=== PATIENT | female | born 1960 | race Caucasian/White ===

== ENCOUNTER 2020-11-27 13:58 | Inpatient (IN) | payer BC ==
[~2020-11-27] VITALS: Ht 172.7 cm; Wt 93.5 kg
[~2020-11-27 13:58] MED LIST: Adipex-P37.5 MG PO; CEFP500 PO; DULO30 PO; DULOXETINE HCL60 M1 PO; LATANOPROST2.5 M1 BOTHEYES
[2020-11-27 15:00] LABS: International Normalized Ratio 0.96; Prothrombin Time Results 10.4 Sec (9.7-11.5)
--- NOTE | 2020-11-27 16:23 | NUR ---
Echocardiogram completed.
--- NOTE | 2020-11-27 18:50 | NUR ---
PATIENT ARRIVED TO UNIT, VSS, ALERT AND ORIENTED. TR BAND IN PLACE, NO SIGNS OF DISCHARGE/HEMATOMA AT R. RADIAL POST-ANGIO SITE, ARMBOARD IN PLACE. WCTM.
--- NOTE | 2020-11-27 19:15 | NUR ---
ASSUMED CARE RECEIVED BEDSIDE REPORT FROM TAE, RN AND STUDENT NURSE MIKE; PT A&O X 4; STATES MINIMAL CP OF 1 OF 10; R RADIAL SITE W/ TR BAND IN PLACE & ARM BOARD; VSS; NSR NOTED ON TELE W/ HR 60'S; PT ORIENTED TO UNIT / CALL LIGHT; EDUCATED ON HEP GTT PER ORDER; CALL LIGHT IN REACH; BED IN LOWEST POSITION
[2020-11-27] MEDS ORDERED: Phendimetrazine35 MG PO (20:07)
--- NOTE | 2020-11-27 22:29 | NUR ---
UPDATE TR BAND FULLY RECOVERED; TEGADERM PLACED C/D/I; ARM BOARD IN PLACE; PHARMACY NOTIFIED AND HEP BOLUS AND HEP GTT RESTARTED @ 13 U/KG/HR; VSS; DENIES CHEST PAIN; RESTING IN BED, LIGHTS OFF; CALL LIGHT IN REACH; BED IN LOWEST POSITION
[2020-11-28 05:02] LABS: BASOPHILS ABSOLUTE AUTO 0.03 K/mm3 (0.00-0.23); BASOPHILS PERCENT AUTO 0 % (0-2); EOSINOPHILS ABSOLUTE AUTO 0.35 K/mm3 (0.00-0.68); EOSINOPHILS PERCENT AUTO 5 % (0-6); Hemoglobin 12.8 g/dL (11.5-16.0); IMMATURE GRAN ABSOLUTE AUTO 0.02 K/mm3 (0.00-0.10); IMMATURE GRAN PERCENT AUTO 0 % (0-1); LYMPHOCYTES PERCENT AUTO 39 % (21-46); MONOCYTES PERCENT AUTO 8 % (4-13); Mean Corpuscular HGB 29.2 pg (26.0-34.0); Mean Corpuscular HGB Conc 32.8 g/dL (31.5-36.5); Mean Corpuscular Volume 89 fL (80-100); Mean Platelet Volume 11.5 fL (9.1-12.4); NEUTROPHILS ABSOLUTE AUTO 3.63 K/mm3 (1.96-9.15); NEUTROPHILS PERCENT AUTO 48 % (41-73); Platelet Count 226 K/mm3 (150-400); RDW Coefficient Variation 12.7 % (11.7-14.2); Red Blood Cell Count 4.38 M/mm3 (3.80-5.20); White Blood Cell Count 7.63 K/mm3 (4.00-11.30)
[2020-11-28 05:38] LABS: Alanine Aminotransfer (ALT/SGP 22 U/L (12-78); Albumin, Blood 3.1 g/dL (3.4-5.0); Albumin/Globulin Ratio 0.9 (0.8-1.8); Alk Phos 107 U/L (50-136); Anion Gap 6 mmol/L (6-16); Aspartate Aminotrans (AST/SGOT 14 U/L (12-37); Bilirubin, Total 0.3 mg/dL (0.1-1.0); Blood Urea Nitrogen 13 mg/dL (8-24); Bun/Creatinine Ratio 22.1 (12.0-20.0); CO2, Blood 25 mmol/L (21-32); Calcium, Blood 8.7 mg/dL (8.5-10.1); Chloride, Blood 109 mmol/L (98-108); Creatinine, Blood 0.59 mg/dL (0.40-1.00); Globulin, Blood 3.3 g/dL (2.2-4.0); Glomerular Filtration Rate >60 (60-); Glucose, Blood 170 mg/dL (70-99); Potassium, Blood 3.7 mmol/L (3.5-5.5); Sodium, Blood 140 mmol/L (136-145); Total Protein, Blood 6.4 g/dL (6.4-8.2); Troponin I 0.184 ng/mL (0.000-0.040)
[2020-11-28 05:56] LABS: CHOL/HDL RATIO 7.9; Cholesterol 237 mg/dL (50-200); HDL Cholesterol 30 mg/dL (>39); LDL/HDL RATIO Unable to Calculate; Low Density Lipoprotein Chol Unable to Calculate mg/dL (0-110); Triglycerides 531 mg/dL (30-160); Very Low Density Lipoprot Chol Unable to Calculate mg/dL (6-32)
--- NOTE | 2020-11-28 06:27 | NUR ---
SHIFT SUMMARY PT A&O X4; PLEASANT & COMPLIANT W/ CARE; DENIES CHEST PAIN; VSS; NSR ON TELE; HEP GTT TO DC AT 0700; AMBULATES FOR BRP W/ NO GAIT DISTURBANCES; TEGADERM IN PLACE TO R RADIAL SITE, C/D/I; ARM BOARD IN PLACE; TROPONIN TRENDING DOWN, 0.184; CALL LIGHT IN REACH; BED IN LOWEST POSITION; WILL CONTINUE TO MONITOR CLOSELY UNTIL HAND OFF TO DAY SHIFT RN.
[2020-11-28] MEDS ORDERED: ATOR40TA PO (12:13)
[2020-11-28] MEDS ORDERED: LOW DOSE ASPIRI81 M1 PO (12:13)
[2020-11-28] MEDS ORDERED: Isosorbide Mono30 MG PO (12:14)
--- NOTE | 2020-11-28 12:52 | NUR ---
PATIENT PROVIDED DISCHARGE INFO REGARDING FOLLOW UP PLANS, REASONS TO RETURN TO THE HOSPITAL, MEDICATION INFORMATION, AND POST-ANGIO RADIAL SITE CARE. PATIENT VERBALIZED UNDERSTANDING, NO SIGNS OF ACUTE DISTRESS. PATIENT LEFT VIA WHEELCHAIR TO PERSONAL VEHICLE WITH SPOUSE PROVIDING RIDE.
== END 2020-11-28 12:40 | disposition home or self-care (01) | DRG 281 ==
LOC: ER 13:58 → PCU 16:06
PROVIDERS: Emergency Medicine; Internal Medicine Cardiovascular Disease; ADMIT Internal Medicine
PROC: 4A023N7 Measurement of Cardiac Sampling and Pressure, Left Heart, Percutaneous Approach (ICD-10-PCS; principal; 2020-11-27)
PROC: B2111ZZ Fluoroscopy of Multiple Coronary Arteries using Low Osmolar Contrast (ICD-10-PCS; 2020-11-27)
DX: I21.4 Non-ST elevation (NSTEMI) myocardial infarction (principal); I31.9 Disease of pericardium, unspecified; E78.5 Hyperlipidemia, unspecified; G35 Multiple sclerosis; H40.89 Other specified glaucoma; F32.9 Major depressive disorder, single episode, unspecified; Z79.899 Other long term (current) drug therapy; I25.110 Atherosclerotic heart disease of native coronary artery with unstable angina pectoris; Z87.891 Personal history of nicotine dependence; E11.65 Type 2 diabetes mellitus with hyperglycemia
CPT/HCPCS: 36415; 71275; 76937; 80053; 80061; 82947; 84484; 85025; 85347; 85610; 85730; 93005; 93010; 93306; 93458; 96374; 99152; 99153; 99285-25; A9270; C1769; C1894; J1644; J2250; J2370; J3010; J7030; Q9967